=== PATIENT | female | born 1990 | race Caucasian/White ===

== ENCOUNTER 2018-03-29 18:30 | Emergency (ER) | payer OTHER ==
[~2018-03-29] VITALS: Ht 162.6 cm; Wt 58.8 kg
[2018-03-29 18:38] VITALS: TEMP 36.9; Ht 162.6 cm; Wt 58.8 kg
[2018-03-29] MEDS ORDERED: AMPICILLIN/SULBACTAM SOD INJ 3,000 MG in SODIUM CHLORIDE 0.9% 100ML 100 ML IV ONE (19:15)
[2018-03-29 19:29] LABS: BASO % 0.5 %; BASO ABS # 0.04 K/uL (0-0.2); EOS % 1.5 %; EOS ABS # 0.11 K/uL (0-0.5); HEMATOCRIT 35.8 % (37-47); HEMOGLOBIN 12.1 g/dL (12.0-16.0); IG# 0.01 K/uL (0.00-0.02); LYMPH % 42.6 %; MEAN CELL VOLUME 81.2 fL (80-100); MEAN CORPUSCULAR HEMOGLOBIN 27.4 pg (25-34); MEAN CORPUSCULAR HGB CONC 33.8 g/dl (32-36); MEAN PLATELET VOLUME 8.1 fL (7.4-10.4); MONO % 9.3 %; NEUT ABS # 3.46 K/uL (1.4-6.5); PLATELET COUNT 252 K/uL (130-400); RED CELL DISTRIBUTION WIDTH SD 38.6 fL (36.4-46.3); WHITE BLOOD COUNT 7.52 K/uL (4.8-10.8)
[2018-03-29 19:46] LABS: CALCIUM 8.7 mg/dl (8.5-10.1); CREATININE 0.94 mg/dl (0.60-1.20); POTASSIUM 3.7 mmol/L (3.5-5.1)
[2018-03-29] MEDS ORDERED: AMOX875T PO (19:49)
[2018-03-29] MEDS ORDERED: ESCI10TA17 PO (19:52)
[2018-03-29] MEDS ORDERED: IBUP-1050 PO (19:52)
[2018-03-29] MEDS ORDERED: BCPILLS PO (19:52)
--- NOTE | 2018-03-29 20:23 | EMERGENCY ROOM VISIT NOTE ---
History First contact with patient: 18:43 Chief Complaint: BITE Stated Complaint: CAT BITE, RASH, WORKER'S COMP History of Present Illness The patient is a 27 year old female who presents to the Emergency Room with complaints of a cat bite which occurred yesterday. 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 This occurred in the early afternoon and she developed some swelling and soreness over the next few hours. She did cleanse the wound with Betadine and applied antibiotic ointment. She was seen in urgent care yesterday afternoon because she was having some swelling in her second and third fingers. They prescribed her Augmentin. She has taken 3 doses of this so far. She states that the swelling on her thumb is slightly worse and she has a small amount of redness extending to the ventral aspect of the wrist. She states that her own rabies vaccination and tetanus vaccination is up-to-date. She denies any fevers or difficulty moving the wrist or thumb. She rates her discomfort a 6/10 , which is slightly worse with movement of the thumb. Review of Systems A complete 10 point review of systems was reviewed with the patient with pertinent positives and negatives as per history of present illness. All else were negative. Past Medical/Surgical History Medical Problems: (1) Anxiety and depression Social History Smoking Status: Never Smoker Alcohol Use: occasionally Occupation Status: employed Current/Historical Medications Scheduled Amoxicillin & Pot Clavulanate (Augmentin 875-125 mg), 1 TAB PO BID Control Pills ( Control Pills), 1 TAB PO DAILY Escitalopram (Lexapro), 15 MG PO DAILY Scheduled PRN Ibuprofen (Advil), 400-600 MG PO Q6H PRN for Pain or Fever Physical Exam Vital Signs Date Time Temp Pulse Resp B/P (MAP) Pulse Ox O2 Delivery O2 Flow Rate FiO2 03/29/18 20:29 72 18 122/71 96 Room Air 03/29/18 18:38 36.9 73 18 128/86 94 Room Air Physical Exam VITALS: Vitals are noted on the nurse's note and reviewed by myself. Vital signs stable. GENERAL: This is a 27-year-old female, in no acute distress, nondiaphoretic, well-developed well-nourished. SKIN: There is a tiny puncture wound to the lateral aspect of the right thumb. There is mild erythema to the thumb and proximal palm. There is a minimal amount of slight erythema to the ventral aspect of the wrist which may represent lymphangitic streaking. HEART: Regular rate and rhythm without murmurs gallops or rubs. LUNGS: Clear to auscultation bilaterally without wheezes, rales or rhonchi. MUSCULOSKELETAL: Full range of motion of the right thumb, all fingers and the right wrist. Radial pulse 2+. Capillary refill within 2 seconds. NEURO: Patient was alert and oriented to person place and time. Distal sensation intact. Medical Decision & Procedures Laboratory Results 03/29/18 19:16 Red Blood Count 4.41, Mean Corpuscular Volume 81.2, Mean Corpuscular Hemoglobin 27.4, Mean Corpuscular Hemoglobin Concent 33.8, Mean Platelet Volume 8.1, Neutrophils (%) (Auto) 46.0, Lymphocytes (%) (Auto) 42.6, Monocytes (%) (Auto) 9.3, Eosinophils (%) (Auto) 1.5, Basophils (%) (Auto) 0.5, Neutrophils # (Auto) 3.46, Lymphocytes # (Auto) 3.20, Monocytes # (Auto) 0.70, Eosinophils # (Auto) 0.11, Basophils # (Auto) 0.04 03/29/18 19:16 Test 03/29/18 19:16 White Blood Count 7.52 K/uL (4.8-10.8) Red Blood Count 4.41 M/uL (4.2-5.4) Hemoglobin 12.1 g/dL (12.0-16.0) Hematocrit 35.8 % (37-47) Mean Corpuscular Volume 81.2 fL (80-100) Mean Corpuscular Hemoglobin 27.4 pg (25-34) Mean Corpuscular Hemoglobin Concent 33.8 g/dl (32-36) Platelet Count 252 K/uL (130-400) Mean Platelet Volume 8.1 fL (7.4-10.4) Neutrophils (%) (Auto) 46.0 % Lymphocytes (%) (Auto) 42.6 % Monocytes (%) (Auto) 9.3 % Eosinophils (%) (Auto) 1.5 % Basophils (%) (Auto) 0.5 % Neutrophils # (Auto) 3.46 K/uL (1.4-6.5) Lymphocytes # (Auto) 3.20 K/uL (1.2-3.4) Monocytes # (Auto) 0.70 K/uL (0.11-0.59) Eosinophils # (Auto) 0.11 K/uL (0-0.5) Basophils # (Auto) 0.04 K/uL (0-0.2) RDW Standard Deviation 38.6 fL (36.4-46.3) RDW Coefficient of Variation 13.0 % (11.5-14.5) Immature Granulocyte % (Auto) 0.1 % Immature Granulocyte # (Auto) 0.01 K/uL (0.00-0.02) Anion Gap 6.0 mmol/L (3-11) Est Creatinine Clear Calc Drug Dose 78.4 ml/min Estimated GFR () 97.0 Estimated GFR (Non- 83.7 BUN/Creatinine Ratio 11.6 (10-20) Calcium Level 8.7 mg/dl (8.5-10.1) Medications Administered Medications (Trade) Dose Ordered Sig/Kinsey Route Start Time Stop Time Status Last Admin Dose Admin Ampicillin Sodium/ Sulbactam Sodium 3000 mg/Sodium Chloride 108 ml @ 200 mls/hr ONE ONCE IV 03/29/18 19:15 03/29/18 19:47 DC 03/29/18 19:39 200 MLS/HR Medical Decision The patient was evaluated as above. She sustained a cat bite yesterday and has taken 3 doses of Augmentin at this time. She does have some slight erythema and what appears to be some lymphangitic streaking, but no evidence of tenosynovitis on her exam today. She does fortunately have full range of motion of the wrist and all fingers. The patient was given a dose of IV Unasyn. Labs were drawn and revealed no leukocytosis. She was advised to return here for a 24-hour recheck to make sure symptoms are improving. She was advised to return sooner for worsening swelling, pain or fevers. She verbalized understanding of my assessment and treatment plan was discharged home in good condition. Medication Reconcilliation Current Medication List: was personally reviewed by me Blood Pressure Screening Patient's blood pressure: Normal blood pressure Impression Primary Impression: Cat bite Departure Information Dispostion Home / Self-Care Condition GOOD Referrals Armani Florez D.O. (PCP) Patient Instructions My [facility] Additional Instructions Continue to take the Augmentin as prescribed. Elevate the hand to help reduce swelling. Return to the ED tomorrow within 24 hours for a recheck. Return to the emergency department sooner for worsening redness/swelling, fevers or any other new/concerning symptoms. Problem Qualifiers Primary Impression: Cat bite Encounter type: initial encounter Qualified Codes: W55.01XA - Bitten by cat , initial encounter
[2018-03-29 20:29] VITALS: BP 122/71; PULSE 72; O2SAT 96
== END 2018-03-29 20:28 | disposition home or self-care (01) ==
LOC: C.EDB 18:31 → C.EDA 20:28
DX: S60.571A Other superficial bite of hand of right hand, initial encounter (principal); W55.01XA Bitten by cat, initial encounter; F41.9 Anxiety disorder, unspecified; F32.9 Major depressive disorder, single episode, unspecified

== ENCOUNTER 2018-03-30 13:09 | Emergency (ER) | payer OTHER ==
[~2018-03-30] VITALS: Ht 162.6 cm; Wt 58.1 kg
[~2018-03-30 13:09] MED LIST: AMOX875T PO; BCPILLS PO; ESCI10TA17 PO; IBUP-1050 PO
[2018-03-30 13:12] VITALS: TEMP 37.1; Ht 162.6 cm; Wt 58.1 kg
[2018-03-30] MEDS ORDERED: AMPICILLIN/SULBACTAM SOD INJ 3,000 MG in SODIUM CHLORIDE 0.9% 100ML 100 ML IV STA (13:26)
[2018-03-30 15:05] VITALS: BP 116/72; PULSE 66; O2SAT 99
--- NOTE | 2018-03-30 18:06 | EMERGENCY ROOM VISIT NOTE ---
History First contact with patient: 13:16 Chief Complaint: OTHER COMPLAINT Stated Complaint: RECHECK,PT WAS HERE YESTERDAY History of Present Illness The patient is a 27 year old female who presents to the Emergency Room for recheck of a cat bite to her right hand. The patient is a local vet and was started on Augmentin 2 days ago after the bite. She had worsening of her symptoms despite the antibiotics and came to the emergency department yesterday. The patient had blood work that was essentially normal that was given IV Unasyn. The patient was asked to return to the ER today to ensure improvement of her symptoms. The patient states that her redness and swelling has improved. She is no longer having pain of her wrist. She continues to have some discomfort around the thumb on the right hand. She has not had fever or chills. She has not had any difficulty taking her medication. She rates her pain a 5/10. Review of Systems More than 10 systems were reviewed and otherwise negative with the exception of history of present illness. Past Medical/Surgical History Medical Problems: (1) Anxiety and depression Family History No pertinent family history Social History Smoking Status: Never Smoker Alcohol Use: occasionally Occupation Status: employed Current/Historical Medications Scheduled Amoxicillin & Pot Clavulanate (Augmentin 875-125 mg), 1 TAB PO BID Control Pills ( Control Pills), 1 TAB PO DAILY Escitalopram (Lexapro), 15 MG PO DAILY Scheduled PRN Ibuprofen (Advil), 400-600 MG PO Q6H PRN for Pain or Fever Physical Exam Vital Signs Date Time Temp Pulse Resp B/P (MAP) Pulse Ox O2 Delivery O2 Flow Rate FiO2 03/30/18 15:05 66 16 116/72 99 03/30/18 14:12 63 16 119/70 100 Room Air 03/30/18 13:12 37.1 73 16 126/85 96 Room Air Physical Exam VITALS: Vitals are noted on the nurse's note and reviewed by myself. Vital signs stable. GENERAL: Well-developed, well-nourished, white female, who is in no acute distress and resting comfortably. Patient is cooperative with the examination. HEART: Regular rate and rhythm without murmurs gallops or rubs. LUNGS: Clear to auscultation bilaterally without wheezes, rales or rhonchi. No retractions or accessory muscle use. MUSCULOSKELETAL: There is a small area of edema and erythema of the base of the right thumb. There is a puncture wound on the palmar aspect without purulence. Neurovascular status is intact to the entirety of the hand. Previously demarcated cellulitic area appears approximately 50% improved. The patient does not have any discomfort with flexion or extension at the wrist. No lymphangitic streaking noted. NEURO: Patient was alert and oriented to person place and time. CN II through XII grossly intact. Medical Decision & Procedures Medications Administered Medications (Trade) Dose Ordered Sig/Kinsey Route Start Time Stop Time Status Last Admin Dose Admin Ampicillin Sodium/ Sulbactam Sodium 3000 mg/Sodium Chloride 108 ml @ 200 mls/hr NOW STAT IV 03/30/18 13:26 03/30/18 13:58 DC 03/30/18 14:14 200 MLS/HR ED Course Physical exam and history were performed. Nursing notes, EMR, and Medication List were personally reviewed. Patient appears to have some improving symptoms from a cat bite cellulitis. I do not appreciate abscess or exam findings consistent with tenosynovitis. She has responded very well to Unasyn and I will give her a repeat dose here in the department today. The patient is otherwise to continue her Augmentin and follow -up with her family doctor after the weekend for a recheck. She was instructed to monitor for worsening signs of infection and otherwise invited back to the ER with any new, worsening, or concerning symptoms. She does not appear with abscess The chart was completed utilizing [employer] Speech Voice Recognition Software. Grammatical errors, random word insertions, pronoun errors, and incomplete sentences are an occasional consequence of this system due to software limitations, ambient noise, and hardware issues. Any formal questions or concerns about the content, text, or information contained within the body of this dictation should be directly addressed to the provider for clarification. . Medical Decision Differential diagnosis: Etiologies such as cellulitis, abscess, MRSA infection, DVT, necrotizing fasciitis, dermatitis, drug eruption, as well as others were entertained.. Impression Primary Impression: Cat bite Departure Information Dispostion Home / Self-Care Condition FAIR Referrals Armani Florez D.O. (PCP) Forms WORK / SCHOOL INSTRUCTIONS, HOME CARE DOCUMENTATION FORM, IMPORTANT VISIT INFORMATION Patient Instructions My [facility] Additional Instructions You were seen and evaluated today on an emergency basis only. This is not a substitute for, or an effort to provide, complete comprehensive medical care. It is not possible to recognize and treat all injuries or illnesses in a single emergency department visit. For this reason it is recommended that you followup with your primary care physician with any ongoing or persisting symptoms. Continue the Augmentin as previously directed. You are welcome to return to the emergency department anytime with new, worsening, or concerning symptoms.
== END 2018-03-30 15:03 | disposition home or self-care (01) ==
LOC: C.EDB 13:10 → C.EDC 15:03
DX: S60.571A Other superficial bite of hand of right hand, initial encounter (principal); W55.01XA Bitten by cat, initial encounter; Z79.3 Long term (current) use of hormonal contraceptives

== ENCOUNTER 2019-10-27 20:09 | Observation (INO) ==
[2019-10-27] MEDS ORDERED: SODIUM CHLORIDE 0.9% 1000ML 1,000 ML IV SCH (20:30)
[2019-10-27 20:34] LABS: POC Urine Bilirubin Negative (Negative); POC Urine Glucose Normal (Normal); POC Urine Ketones Negative (Negative); POC Urine Leukocytes Negative (Negative); POC Urine Nitrite Negative (Negative); POC Urine Protein Negative (Negative); POC Urine Urobilinogen Normal (Normal)
[2019-10-27] MEDS ORDERED: cefOXitin 2,000 MG/60 ML BAG IV STA (20:43)
[2019-10-27 20:46] LABS: Appearance Urine Clear (Clear); Bilirubin Urine Negative (Negative); Blood Urine Trace (Negative); Color Urine Yellow; Glucose Urine UA Negative (Negative); Ketones Urine Negative (Negative); Leukocyte Esterase Urine Negative (Negative); Nitrite Urine Negative (Negative); Protein Urine Negative (Negative); Urobilinogen Urine Negative (Negative); pH Urine 6.5 (4.5-7.5)
--- NOTE | 2019-10-27 20:54 | Billing Data ---
Date of Service October 27, 2019 Coding Level of Care Code 62858 Initial Inpt Care Lvl 3
--- NOTE | 2019-10-27 20:54 | History & Physical Report ---
Date of Service October 27, 2019 Assessment & Plan (1) Acute appendicitis: Patient with acute appendicitis We will proceed with laparoscopic appendectomy possible open appendectomy She has been ordered IV antibiotics Acute appendicitis type: unspecified acute appendicitis type Qualified Code(s): K35.80 - Unspecified acute appendicitis History of Present Illness Primary Care Provider: Armani Florez DO Patient with acute abdominal pain presenting the emergency room She was found on CAT scan to have acute appendicitis Her white blood cell count is 7.8 She is otherwise very healthy Allergies Allergy/AdvReac Type Severity Reaction Status Date / Time No Known Allergies Allergy Verified 10/27/19 20:54 Home Medications Home Medications Medication Instructions Recorded Confirmed Type Amoxicillin & Pot Clavulanate 1 tab PO BID #14 tab 03/29/18 History (Augmentin 875-125 mg) Control Pills 1 tab PO DAILY #0 tab 03/29/18 History Escitalopram (Lexapro) 15 mg PO DAILY #0 tab 03/29/18 History Ibuprofen (Advil) 400 - 600 mg PO Q6H PRN #0 tab 03/29/18 History Past Med/Surg History Medical History (Updated 10/27/19 @ 20:29 by Caitlyn Aponte) Anxiety and depression Cat bite (Acute) Social History Preferred Language: Belarusian Feels Safe at Home: Yes Smoking Status: Never smoker Review of Systems All systems reviewed & are unremarkable except as noted in HPI & below Physical Exam Constitutional: well developed and well nourished; no acute distress Respiratory: normal respiratory effort; no respiratory distress Cardiovascular: Rate/Rhythm: regular rate Gastrointestinal (Abdomen): Patient's abdomen is flat and soft she has right lower quadrant tenderness to deep palpation Skin: no rashes, warm and dry Neurologic: awake Psychiatric: Orientation: alert Results & Data Diagnostic Findings I did review the patient's CAT scan
--- NOTE | 2019-10-27 20:56 | Emergency Department Note ---
Entered by Caitlyn Aponte acting as a scribe for History of Present Illness General Chief complaint: Abdominal Pain Stated complaint: ACUTE APPENDICITIS Time Seen by Provider: 10/27/19 20:13 History of Present Illness Provider complaint: RLQ abdominal pain Onset (ago): hour(s) (17) Location: abdomen (RLQ) Pain Consistency: + other (episode) Maximum Pain Intensity: 6 Relieved By: not by medication (Ibuprofen, Tylenol) Associated symptoms: + nausea/vomiting and + other (pain woke her up at 0300 this morning, CT positive for appendicitis, elevated white blood cell count, pain to palpated RLQ) The patient is a 29 year old female who presents to the ED with complaints of an episode of RLQ abdominal pain that started 17 hours ago. The patient states that she woke up at 0300 this morning with generalized abdominal pain. The patient states that she took Ibuprofen and Tylenol to try to control the pain but it did not help. The patient states that she made an appointment with her PCP for 1630 today and they did a CT and blood work. The patient states that the CT was positive for appendicitis and her blood work showed an elevated white blood cell count. The patient states that she felt pain when her PCP palpated her RLQ. The patient states that she has felt nauseas and has vomited once. Allergies Allergy/AdvReac Type Severity Reaction Status Date / Time No Known Allergies Allergy Verified 10/27/19 20:54 Past Med/Surg History Medical History (Updated 10/27/19 @ 20:29 by Caitlyn Aponte) Anxiety and depression Cat bite (Acute) Social History Preferred Language: Lao Feels Safe at Home: Yes Smoking Status: Never smoker Review of Systems See HPI for pertinent positives & negatives. and A total of 10 systems reviewed and were otherwise negative Physical Exam Vital Signs Vital Signs - 24 hr 10/27/19 20:10 Sepsis Recent Fever Within 48 Hours No Sepsis Action Taken by Nursing No Action Required GENERAL: Patient is awake, alert, and in no acute distress.Patient is resting comfortably and showing no signs of anxiety EYES: The conjunctivae are clear. The pupils are round and reactive. EARS, NOSE, MOUTH AND THROAT: The nose is without any evidence of any deformity. Mucous membranes are moist.Tongue is midline NECK: The neck is nontender and supple. RESPIRATORY: Normal respiratory effort is noted. There is no evidence of wheezing rhonchi or rales to auscultation. CARDIOVASCULAR: Regular rate and rhythm noted. There no murmurs rubs or gallops normal S1 normal S2 GASTROINTESTINAL: The abdomen is soft and nondistended, RLQ tenderness to palpation. MUSCULOSKELETAL/EXTREMITIES: There is no evidence of gross deformity. Full range of motion is noted in the hips and shoulders. SKIN: There is no obvious evidence of any rash. There are no petechiae, pallor or cyanosis noted. NEUROLOGIC: Patient is awake alert and oriented x3. Course Course 2014: Past medical records reviewed. The patient was evaluated in room C5. A complete history and physical exam was performed. 2024: I discussed the patient's case with Dr. Georgina Sandra. He will evaluate the patient for further management. Consultations Consultation #1: I discussed the patient's case with Dr. Georgina Sandra. He will evaluate the patient for further management. Time: 20:25 Administered Medications Sodium Chloride (Nss 1000ml) 1,000 mls @ 999 mls/hr IV .Q1H1M COLTEN Stop: 10/27/19 21:30 Last Admin: 10/27/19 20:29 Dose: 999 mls/hr Documented by: [id number] Medical Decision Making Differential Diagnosis Differential diagnosis: Etiologies such as biliary colic, cholecystitis, hepatitis, perihepatitis, pancreatitis, cardiac disease, pancreatitis, gastritis, peptic ulcer disease, appendicitis, ovarian cyst, ovarian torsion, ectopic , pelvic inflammatory disease, cystitis, diverticulitis, mesenteric ischemia, inflammatory bowel disease, ileus, bowel obstruction, aortic pathology, shingles, as well as others were considered. Medical Records Attestation: I reviewed the patient's medical records. Home Medications Current Medication List: was personally reviewed by ut Laboratory Data Lab Results 10/27/19 10/27/19 Range/Units 20:25 20:25 Urine Color Yellow Urine Appearance Clear (Clear) Urine pH 6.5 (4.5-7.5) Ur Specific [place] 1.030 (1.000-1.030) Urine Protein Negative (Negative) POC Urine Protein Negative (Negative) Urine Glucose (UA) Negative (Negative) POC Ur Glucose (UA) Normal (Normal) Urine Ketones Negative (Negative) POC Urine Ketones Negative (Negative) Urine Blood Trace H (Negative) Urine Nitrite Negative (Negative) POC Urine Nitrite Negative (Negative) Urine Bilirubin Negative (Negative) POC Urine Bilirubin Negative (Negative) Urine Urobilinogen Negative (Negative) POC Urine Urobilinogen Normal (Normal) Ur Leukocyte Esterase Negative (Negative) POC U Leukocyte Esteras Negative (Negative) MDM Narrative The patient is a 29-year-old female who presented to the emergency department for an evaluation of abdominal pain. The patient had abdominal pain which began this morning. Initially it was generalized but now localized in the right lower quadrant. The patient was seen by her primary care physician and laboratory and radiographic studies were ordered. The patient was found no signs of appendicitis on CT and was sent directly to the emergency department. The patient was treated with IV fluids. I discussed the patient's laboratory and radiographic studies with her. I discussed her case with the on-call general surgeon. They have agreed to evaluate the patient in the emergency department for further management and disposition. Impression & Plan Acute appendicitis, RLQ abdominal pain Discharge Plan Visit Data Chief Complaint: Abdominal Pain Stated Complaint: ACUTE APPENDICITIS ED Provider: Donaldo Ordoñez Discharge Problem: Acute appendicitis, RLQ abdominal pain Patient Disposition: Being Evaluated by Surgeon Forms Stand Alone Forms: My [facility] Referrals Referrals: Armani Florez DO [Primary Care Provider] - Discharge Problem: Acute appendicitis Qualifiers: Acute appendicitis type: unspecified acute appendicitis type Qualified Code(s): K35.80 - Unspecified acute appendicitis The scribe's documentation has been prepared under my direction and personally reviewed by me in its entirety. I confirm that the note above accurately reflects all work, treatment, procedures, and medical decision making performed by me.
[2019-10-27 20:58] LABS: Bacteria Urine Negative (Negative); RBC Urine 0-4 /hpf (0-4); WBC Urine 0-5 /hpf (0-5)
[2019-10-27 21:34] LABS: Pregnancy Test, Urine Negative (Negative)
[2019-10-27] MEDS ORDERED: MoRPHine SULFATE 4 MG/ML 1 ML CARP\\VIAL IV PRN (21:41)
[2019-10-27] MEDS ORDERED: ONDANSETRON INJ 2 MG/ML 2 ML VIAL IV STA (21:41)
[2019-10-27] MEDS ORDERED: SODIUM CHLORIDE 0.9% INJ 10 ML VIAL ONE (22:06)
[2019-10-27] MEDS ORDERED: fentaNYL citrate 100 MCG/2 ML VIAL ONE ×2 (22:07→23:31)
[2019-10-27] MEDS ORDERED: MIDAZOLAM HCL 1 MG/ML 2ML VIAL ONE (22:07)
[2019-10-27] MEDS ORDERED: BUPIVACAINE 0.5 % 5 MG/1 ML MPF 30ML VIAL ONE (22:09)
--- NOTE | 2019-10-27 22:35 | Anesthesiology Consultation ---
Date of Service October 27, 2019 Assessment & Plan (1) Encounter for pre-operative examination: Chart Review Chart Review: Acceptable Risk for Surgery History Surgery Operation Date: 10/27/19 22:30 Proposed Procedures p Laparoscopic Appendectomy - Maxx Bourgeois MD, FACS Height/Weight Height: 5 ft 3 in Weight: 61.4 kg Allergies Allergy/AdvReac Type Severity Reaction Status Date / Time No Known Allergies Allergy Verified 10/27/19 20:54 Medications Home Medications Medication Instructions Recorded Confirmed Last Taken acetaminophen [Tylenol Extra 1,000 mg PO Q6H PRN 10/27/19 10/27/19 Unknown Strength] drospirenone-ethinyl estradiol 1 tab PO DAILY 10/27/19 10/27/19 Unknown ibuprofen 400 - 600 mg PO Q6H PRN 10/27/19 10/27/19 Unknown Active Medications Generic Name Dose Route Start Last Admin Trade Name Freq PRN Reason Stop Dose Admin Morphine Sulfate 4 mg 10/27/19 21:41 10/27/19 21:47 Morphine Sulfate IV 11/10/19 21:40 4 mg Q15M PRN Administration Pain NPO Date Last Intake of Fluids: 10/27/19 Time Last Intake of Fluids: 21:01 Last Intake of Fluids Comment: 1100 Date Last Intake of Solids: 10/27/19 Time Last Intake of Solids: 07:00 Past Medical History Medical History (Updated 10/27/19 @ 22:35 by Shankar Acuna MD) Anxiety and depression Cat bite (Acute) Past Surgical History Surgical History (Updated 10/27/19 @ 22:33 by Shankar Acuna MD) No significant past surgical history Social History Smoking Status: Never smoker Testing Laboratory Results Urine Color Yellow 10/27/19 20:25 Urine Appearance Clear (Clear) 10/27/19 20:25 Urine pH 6.5 (4.5-7.5) 10/27/19 20:25 Ur Specific [place] 1.030 (1.000-1.030) 10/27/19 20:25 Urine Protein Negative (Negative) 10/27/19 20:25 Urine Glucose (UA) Negative (Negative) 10/27/19 20:25 Urine Ketones Negative (Negative) 10/27/19 20:25 Urine Nitrite Negative (Negative) 10/27/19 20:25 Ur Leukocyte Esterase Negative (Negative) 10/27/19 20:25 Urine RBC 0-4 /hpf (0-4) 10/27/19 20:25 Urine WBC 0-5 /hpf (0-5) 10/27/19 20:25 Ur Epithelial Cells 5-10 /lpf (0-5) H 10/27/19 20:25 Urine Test Negative (Negative) 10/27/19 20:25 10/27/19 20:25 Urine Test Negative k 3.8 creat 0.9 hb 12 wbc 16 plt 315
[2019-10-27] MEDS ORDERED: ONDANSETRON INJ 2 MG/ML 2 ML VIAL IV PRN (22:36)
[2019-10-27] MEDS ORDERED: fentaNYL citrate 100 MCG/2 ML VIAL IV PRN (22:36)
[2019-10-27] MEDS ORDERED: PROMETHAZINE HCL 6.25 MG in SODIUM CHLORIDE 0.9% 50 ML IV PRN (22:36)
[2019-10-27] MEDS ORDERED: ATROPINE SULFATE 0.1 MG/ML 10ML SYR IV PRN (22:36)
[2019-10-27] MEDS ORDERED: MEPERIDINE HCL 25 MG/ML CARP IV PRN (22:36)
[2019-10-27] MEDS ORDERED: KETOROLAC 30 MG/ML VIAL IV PRN (22:36)
[2019-10-27] MEDS ORDERED: PROPOFOL IV EMULSION 10 MG/ML 20 ML VIAL IV ONE (23:27)
[2019-10-27] MEDS ORDERED: LIDOCAINE HCL 2% 2 ML VIAL/AMP(20MG/ML) INFIL ONE (23:27)
[2019-10-27] MEDS ORDERED: ROCURONIUM BROMID 50MG/5ML SYR ONE (23:27)
[2019-10-27] MEDS ORDERED: SUCCINYLCHOLINE 100MG/5ML SYR ONE (23:27)
[2019-10-27] MEDS ORDERED: NEOSTIGMINE METHYLSULFATE 5 MG/5 ML SYR ONE (23:28)
[2019-10-27] MEDS ORDERED: GLYCOPYRROLATE 0.2 MG/ML VIAL ONE (23:28)
[2019-10-27] MEDS ORDERED: ONDANSETRON INJ 2 MG/ML 2 ML VIAL ONE (23:28)
[2019-10-27] MEDS ORDERED: METOCLOPRAMIDE HCL INJ 5 MG/ML 2 ML VIAL ONE (23:28)
[2019-10-27] MEDS ORDERED: ACETAMINOPHEN 1,000 MG/100 ML VIAL IV STA (23:45)
--- NOTE | 2019-10-27 23:45 | Post Operative Brief Note ---
PG Immediate Post Op with CF Date of Surgery October 27, 2019 Pre & Post Diagnosis Operation Date: 10/27/19 22:30 <No data on this case meets the specified criteria> acute appendicitis, adhesions I identified the patient and participated in the time-out.: Yes Procedure Operation Date: 10/27/19 22:30 <No data on this case meets the specified criteria> laparoscopic appendectomy, lysis of adhesions (enterolysis ) Surgeon Maxx Bourgeois MD, FACS [id number] Consultant nurses Estimated Blood Loss 10 Findings Consistent with Post-Op Diagnosis
--- NOTE | 2019-10-28 00:16 | Anesthesiology Progress Note ---
Date of Service October 28, 2019 Anesthesia Post Procedure Vital Signs Vital Signs: Temp Pulse Resp BP Pulse Ox 10/28/19 00:05 78 18 134/70 99 10/27/19 23:55 36.0 C L 99 H 21 133/72 98 Transfer of Care Handoff Completed per policy Notes Mental Status: alert / awake / arousable Patient Amnestic to Procedure: Yes Nausea / Vomiting: adequately controlled Pain: adequately controlled Airway Patency, RR, SpO2: stable & adequate BP & HR: stable & adequate Hydration State: stable & adequate Anesthetic Complications: no major complications apparent
--- NOTE | 2019-10-28 00:36 | Operative Report ---
DATE OF OPERATION: 10/27/2019 NAME OF OPERATION: Laparoscopic appendectomy with enterolysis. PREOPERATIVE DIAGNOSIS: Acute appendicitis. POSTOPERATIVE DIAGNOSES: Acute appendicitis with adhesions. STAFF SURGEON: Maxx Bourgeois MD ANESTHESIA: General. DESCRIPTION OF PROCEDURE: The patient was brought in the operating room and placed on the operating table in supine position. Pneumatic stockings, orogastric tube were placed. Her abdomen was prepped and draped in usual fashion. 0.5% plain Marcaine was used to anesthetize all incisions. Incision was made just above the umbilicus, carrying dissection down, placing a 5 mm port and then under visualization with pneumoperitoneum. A second 5 mm port was placed suprapubically and then a 12 mm port placed in the left lower quadrant. The patient did have adhesions of the small bowel to the abdominal wall. These were taken down partly and then the cecum was identified and reflected. The appendix was retrocecal and it was very adherent to the surrounding tissue. I did have to spend some time dissecting the appendix free. Finally, identified the base, transected using the Endo-RADHA. Then, the mesoappendix was transected using the Endo-RADHA and also 10 mm clips. The appendix was placed in an Endobag removed through the left lower quadrant port site and then the site irrigated. Good hemostasis, all ports were removed. The fascia at the umbilicus and the left lower quadrant closed using 0 Vicryl suture. Skin reapproximated using subcuticular 4-0 Monocryl, Dermabond at the umbilicus and suprapubic area and then Steri-Strips in the left lower quadrant. The patient was transferred to recovery room in stable condition. I attest to the content of the Intraoperative Record and any orders documented therein. Any exception s are noted below.
[2019-10-28] MEDS ORDERED: PROMETHAZINE HCL 12.5 MG in SODIUM CHLORIDE 0.9% 50 ML IV PRN (01:00)
[2019-10-28] MEDS ORDERED: PROMETHAZINE HCL 25 MG in SODIUM CHLORIDE 0.9% 50 ML IV PRN (01:00)
[2019-10-28] MEDS ORDERED: IBUPROFEN 600 MG TAB PO PRN (01:00)
[2019-10-28] MEDS ORDERED: ACETAMINOPHEN 325 MG TAB PO PRN (01:00)
[2019-10-28] MEDS ORDERED: HYDROCODONE/ACETAMOPHEN 5/325MG TAB PO PRN (01:00)
[2019-10-28] MEDS ORDERED: ONDANSETRON INJ 2 MG/ML 2 ML VIAL IV PRN (01:00)
[2019-10-28] MEDS ORDERED: MoRPHine SULFATE 2 MG/ML CARP IV PRN ×2 (01:00)
[2019-10-28] MEDS ORDERED: SODIUM CHLORIDE 0.9% 1000ML 1,000 ML IV SCH (01:00)
[2019-10-28] MEDS: ORAL CONTRACEPTIVE~ORDER AWAITING ACTION SCH ×2 (01:35→08:13)
[2019-10-28] MEDS: HYDROCODONE/ACETAMOPHEN 5/325MG TAB PO PRN ×2 (06:47→10:59)
--- NOTE | 2019-10-29 08:36 | Discharge Summary ---
PRINCIPAL DIAGNOSIS: Acute appendicitis. PROCEDURES: The patient underwent laparoscopic appendectomy. HISTORY OF PRESENT ILLNESS: The patient is a 29-year-old female presenting to the Emergency Room on 10/27/2019 with acute appendicitis, found after she presented with acute abdominal pain. HOSPITAL COURSE: She was taken to the operating room where she underwent laparoscopic appendectomy, which she tolerated very well. She did very well overnight and was felt stable for discharge on 10/28/2019 with normal physical findings and stable abdominal wounds. She is to be seen in the surgical clinic within 2-3 weeks.
== END 2019-10-28 12:21 | disposition home or self-care (01) ==
LOC: ED 20:09 → ASU 22:13 → 3W 22:13